=== PATIENT | female | born 1990 | race African-American/Black ===

== ENCOUNTER 2020-05-29 12:48 | Outpatient (CLI) | payer OTHER, SELFPAY ==
--- NOTE | ~2020-05-29 | MMUS_ITS ---
EXAMINATION: MM diagnostic jordana BI w roz, US breast LT complete HISTORY: Palpable left breast abnormality. TECHNIQUE: Additional 3-D tomosynthesis images of the breasts were performed and synthetic 2-D images were generated. CAD analysis was submitted and interpreted. High resolution left breast ultrasound w as performed. COMPARISON: None BREAST PARENCHYMAL COMPOSITION: The breasts are extremely dense, which lowers the sensitivity of mamm ography. FINDINGS: MAMMOGRAPHIC FINDINGS: There is a mass in the lower outer quadrant of the left breast posteriorly measuring up to 4 cm. Ther e is no mammographic evidence for malignancy in the right breast. ULTRASOUND: Right breast ultrasound: In the area palpable concern at 2:00, 1 cm from the nipple, there is a bilobed hypoechoic mass measur ing 7 mm maximum dimension without posterior features or internal vascularity. At 3:00, 5 cm from the nipple, there is cyst measuring 3.8 x 3 x 1.2 cm corresponding to the mass identified on mammogram. At 12:00 near the nipple there is a 1 cm cyst. IMPRESSION: 1. Probable benign bilobed mass at 2:00, 1 cm from the nipple measuring up to 7 mm. 2. Recommend 6 month follow-up left breast ultrasound BI-RADS category 3, probably benign findings. Reviewed, dictated and finalized at location A. IMPRESSION: 1. Probable benign bilobed mass at 2:00, 1 cm from the nipple measuring up to 7 mm. 2. Recommend 6 month follow-up left breast ultrasound BI-RADS category 3, probably benign findings.
== END 2020-05-29 12:49 | disposition home or self-care (01) ==
LOC: ANHIMG 12:51
PROVIDERS: PCP Internal Medicine; Visit Provider Obstetrics & Gynecology
DX: N63.20 Unspecified lump in the left breast, unspecified quadrant (principal); R92.8 Other abnormal and inconclusive findings on diagnostic imaging of breast
CPT/HCPCS: 76641; 77062; 77066; G0279

== ENCOUNTER 2020-10-08 10:39 | Outpatient (CLI) | payer OTHER, SELFPAY ==
--- NOTE | ~2020-10-08 | US_ITS ---
EXAMINATION: US OB <=14 wk fetus w TV DATE: 10/08/2020 11:17 INDICATION: First trimester with inconclusive viability TECHNIQUE: Real-time pelvic ultrasound utilizing both a transvaginal and transabdominal probe was pe rformed. The interpreting radiologist was not present for the study. COMPARISON: None. FINDINGS: The uterus measures 10.0 x 6.2 x 6.1 cm. There is an intrauterine gestational sac. A yolk sac and fe lois pole are identified. The crown rump length measures 2.3 cm, which correlates with an estimated ge stational age of 9 weeks and 0 days. heart motion is identified measuring 181 beats per minute (bpm) by M-mode Doppler. The right ovary measures 2.7 x 1.5 x 2.5 cm. The left ovary measures 3.3 x 2.0 x 2.3 cm. There are co uple approximately 1 cm anterior subserosal uterine fibroids. There is no free fluid in the pelvis. IMPRESSION: 1. Single living fetus with heart rate of 181 bpm. 2. Gestational age by ultrasound of 9 weeks 0 day(s) +/- 6 day(s) with ultrasound estimated date of delivery (ARVIND) of 05/13/2021. Reviewed, dictated and finalized at location A. 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 Single living fetus with heart rate of 181 bpm. 2. Gestational age by ultrasound of 9 weeks 0 day(s) +/- 6 day(s) with ultraso und estimated date of delivery (ARVIND) of 05/13/2021.
== END 2020-10-08 10:40 ==
PROVIDERS: Visit Provider Obstetrics & Gynecology
DX: O36.80X0 Pregnancy with inconclusive fetal viability, not applicable or unspecified (principal); Z3A.09 9 weeks gestation of pregnancy
CPT/HCPCS: 76801; 76817

== ENCOUNTER 2021-05-04 09:12 | Outpatient (CLI) | payer OTHER, SELFPAY ==
[2021-05-04 10:07] LABS: Hematocrit 37.6 % (37.0-47.0); Hemoglobin 11.7 g/dL (12.0-15.0); Mean Corpuscular HGB Conc 31.1 g/dl (32-36); Mean Corpuscular Hemoglobin 24.4 pg (26-34); Mean Corpuscular Volume 78.3 fl (80-100); Mean Platelet Volume 9.8 fl (7.4-10.4); Platelet Count Result 219 k/mm3 (150-375); White Blood Count 8.9 K/mm3 (4.5-10.0)
[2021-05-06 08:37] LABS: Rapid Plasma Reagin Non-Reactive (NonReactive)
== END 2021-05-04 09:13 | disposition home or self-care (01) ==
LOC: ANHASCLAB 09:17 → ANHLAB 09:17
PROVIDERS: PCP Internal Medicine; Visit Provider Obstetrics & Gynecology
DX: Z34.93 Encounter for supervision of normal pregnancy, unspecified, third trimester (principal); Z3A.00 Weeks of gestation of pregnancy not specified
CPT/HCPCS: 36415; 85027; 86592; 86850; 86900; 86901

== ENCOUNTER 2021-05-06 05:33 | Inpatient (IN) | payer OTHER, SELFPAY ==
--- NOTE | 2021-04-16 13:04 | PC.NURSE ---
VERIFIED WITH OR SCHEDULE AND PATIENT--C/S ON 05/06/21 AT 0730 PATIENT GIVEN REQUISITION FOR LAB DRAWN ON 05/04/21
[2021-05-06] VITALS (62 sets, daily range): BP systolic 98–133; BP diastolic 51–88; PULSE 71–113; RESP 12–18; TEMP 35.8–36.7; O2SAT 93–100; BMI 26.6
--- NOTE | 2021-05-06 05:38 | PM.IMHP ---
H&P: HPI History of Present Illness Date/Time: 05/06/21 05:38 EDC May 13 established by a 9 week ultrasound. Patient is a at 39 weeks admitted for repeat ceserean section. PNC signficant for prior ceserean section. Discussed risk and benefits of trial of labor versus repeat ceserean section and she desires repeat ceserean section. PNC also significant for prior PPROM and signficant for kidneys measuring larger and echogenic. No oligohydramnios. She has been followed by MFM and has had consult with carboy filler. They did not recommend delivery at tertiary care facility. They recommended ultrasound of baby at 48 hours. She has a history of HSV. She has been on suppression acyclovir. No outbreaks or prodromal symptoms in months. She has had normal surveillance testing. She is planning on getting IUD . labs reviewed. GSB negative. Chief Complaint: Elective repeat ceserean section. Review of Systems Review of Systems: All systems reviewed & are unremarkable except as noted in HPI and below Constitutional: Constitutional: Reports no additional constitutional complaints and Denies headache(s) Eyes: Eyes: Denies spots in vision ENT: Reports system reviewed and no additional complaints, except as documented and Denies headache(s) Cardiovascular: Cardiovascular: Denies chest pain and Denies dyspnea Respiratory: Respiratory: Denies dyspnea Gastrointestinal: Gastrointestinal: Reports no additional gastrointestinal complaints Genitourinary: Genitourinary: Reports amenorrhea Musculoskeletal: Musculoskeletal: Reports no additional musculoskeletal complaints Integumentary/Breasts: Skin/Breast: Denies breast mass and Denies rash Neurologic: Denies headache(s) Psychiatric: Psychiatric: Reports no additional psychiatric complaints [facility] Past Medical History Medical History Chlamydia Depression Impacted cerumen of left ear Right hip pain Screening for cardiovascular condition Urinary frequency Urinary tract infection without hematuria Surgical History Surgical History Previous section Family History Family History Grandparent Family history of elevated blood lipids Diabetes mellitus Hypertension Cerebrovascular accident Mother Patient's mother is in good health Father Patient's father is in good health Sibling Patient's brother is in good health Patient's sister is in good health Autism Son ADHD Social History Social History Smoking status: Former smoker Second hand tobacco smoke exposure: No Smoking end date: 11/14/16 Alcohol intake: current Substance use: never Spiritual care concerns: No Meds Home Medications and Allergies Home Medications Medication Instructions Recorded Confirmed Type prenat.vits,lobito,fow-wokn-zituf 1 tablet PO DAILY 09/18/20 03/27/21 History [id number]-[id number]-vit C-docusate sod tablet PO 11/09/20 03/27/21 History 90 mg-1 mg-12 mcg-120 mg-50mg tablet acyclovir 400 mg tablet See Rx Instructions .ROUTE 04/25/21 Rx .COMPLEX #60 tablet Allergies Allergy/AdvReac Type Severity Reaction Status Date / Time amoxicillin Allergy Unknown Abdominal Verified 05/02/21 16:27 discomfort clavulanic acid Allergy Unknown Hives Verified 05/02/21 16:27 potassium AdvReac Hives Verified 05/02/21 16:27 Exam Const: General: no acute distress Eyes: General: appearance normal, both eyes and all related structures Resp: Effort & Inspection: normal respiratory effort Cardio: Rate: regular rate GI: Other: Gravid no fundal tenderness no right upper quadrant pain : External Female Exam: normal external appearance Speculum Exam - Vagina: normal appearance of the vagina Speculum Exam -
[2021-05-06] MEDS: LACTATED RINGERS 1,000 ML 125 ML IV CONT ×2 (06:14→06:34)
--- NOTE | 2021-05-06 06:24 | LDADM ---
This patient, Karla Garcia, was admitted to Labor/Delivery/Recovery 120 on 05/06/21 at 05:33. Plans for labor, pain management and were discussed with patient. Patient/family oriented to hospital policies and general routines including ID bracelet, bed and alarms, visiting hours, pain management, procedures, bathroom and other care routines, personal items, smoking policy, room service/diet and guest tray routines, infant security routines, and visiting hours. Patient/Family are encouraged to report perceived risks to care and to ask questions if they do not understand what they are told or what they should do. See OBIX for further documentation.
--- NOTE | 2021-05-06 06:54 | WPDANESEPPF ---
Anes - Initial Pre Proc Eval Procedure: Operation Date: 05/06/21 07:30 Proposed Procedures p Repeat Section - Joey Macias MD Date/Time: 05/06/21 06:54 Surgeon: Joey Macias MD Pre Op Diagnosis: Patient Data Age: 31 Gender: F Height: 1.63 m Weight: 70.5 kg Last Vital Signs Temp 36.7 C 05/06/21 06:20 Pulse 96 05/06/21 05:47 BP 133/88 05/06/21 05:47 Allergies Allergy/AdvReac Type Severity Reaction Status Date / Time amoxicillin Allergy Unknown Abdominal Verified 05/02/21 16:27 discomfort clavulanic acid Allergy Unknown Hives Verified 05/02/21 16:27 potassium AdvReac Hives Verified 05/02/21 16:27 Home Medications Medication Instructions Recorded Confirmed Type prenat.vits,lobito,qvn-nvly-fskqr 1 tablet PO DAILY 09/18/20 05/06/21 History vbym-UB-wicZ32-vit C-docusate sod 1 tablet PO DAILY 11/09/20 05/06/21 History 90 mg-1 mg-12 mcg-120 mg-50mg tablet acyclovir 400 mg tablet See Rx Instructions .ROUTE 04/25/21 05/06/21 Rx .COMPLEX #60 tablet Patient hx anesthesia problems: none Family hx anesthesia problems: none PMFSH Past Medical History Medical History Chlamydia Depression Impacted cerumen of left ear Right hip pain Screening for cardiovascular condition Urinary frequency Urinary tract infection without hematuria Surgical History Surgical History Previous section Family History Family History Grandparent Family history of elevated blood lipids Diabetes mellitus Hypertension Cerebrovascular accident Mother Patient's mother is in good health Father Patient's father is in good health Sibling Patient's brother is in good health Patient's sister is in good health Autism Son ADHD Social History Social History Smoking status: Former smoker Tobacco type: cigarettes Second hand tobacco smoke exposure: No Smoking end date: 11/14/16 Alcohol intake: current Substance use: never Spiritual care concerns: No Anes - Eval Final PreProcedure Day of Procedure 05/06/21 06:54 Patient weight: normal Heart: regular rate and rhythm Lungs: clear to auscultation and normal air movement Airway: Mallampati scale class II Neurological: alert and oriented Last oral intake: >/= 8 hours ASA classification: II Emergent: no Anesthetic plan: proceed Anesthesia type and monitoring: regional spinal and standard monitoring Informed Consent: The patient's anesthetic plan and its attendant risks and benefits were discussed with the patient/family/POA. Questions were solicited and answers provided to the satisfaction of the patient/family/POA.
--- NOTE | 2021-05-06 07:38 | WPDHPUPDATE1 ---
History and Physical Update Update Date/Time: 05/06/21 07:38 History and Physical has been reviewed, including an updated exam of the patient. There are NO changes in the patient's condition. Risks, benefits, and alternatives have been discussed and questions answered. Patient agrees to proceed with procedure.
[2021-05-06] MEDS: ceFAZolin 2 GM/D5W 50 ML 2 GM/50 ML BAG IVPB (07:45)
[2021-05-06] MEDS: ONDANSETRON INJ 4 MG/2 ML VIAL IV PUSH (08:31)
[2021-05-06] MEDS: OXYTOCIN 30 UNITS/NS 500 ML 30 UNITS/500 ML BAG 125 UNITS IV CONT (09:40)
[2021-05-06] MEDS: fentaNYL CITRATE INJ (*CRX) 100 MCG/2 ML VIAL 25 MCG IV PUSH (10:00)
--- NOTE | 2021-05-06 11:55 | PC.NURSE ---
Patient transferred to post room #292 per stretcher from labor and delivery. Support person present. Oriented to unit, room, information board, rooming in, admission packet and security measures. Patient verbalizes understanding.
--- NOTE | 2021-05-06 13:35 | W.PM.PROC2 ---
Procedure Note - Detailed Date of Procedure 05/06/21 Pre-op Diagnosis Post-op Diagnosis same Procedure Performed Repeat low-transverse section. Surgeon Joey Macias MD Anesthesia spinal Indications Patient is a 31-year-old with a prior section. She has been counseled regarding options of trial of labor versus repeat section and has opted for repeat section at 39 weeks. Findings Male 6 lb 2 oz Apgars 9 and 9 normal fallopian tubes and ovaries bilaterally. There are multiple subserosal fibroids. One of the anterior fibroids appeared to be partially delivered up from the serosa and this was further cauterized and will be sent to pathology. Description of Procedure The patient was taken to the operating room where spinal anesthesia was found to be adequate. The patient was prepped and draped in the usual sterile fashion in the dorsal supine position with a left-shah tilt. A Pfannenstiel skin incision was made with the scalpel along her prior Pfannenstiel scar and carried through to the underlying layer of fascia using the Bovie. The fascia was incised in the midline and extended laterally using Figueroa scissors. Charlene clamps were used to elevate the superior aspect of the fascial incision, which was elevated, and the underlying rectus muscles were dissected off bluntly and using Figueroa scissors. Attention was then turned to the inferior aspect of the fascial incision, which in similar fashion was grasped with Charlene clamps, elevated, and the underlying rectus muscles were dissected off bluntly and using Figueroa scissors. The rectus muscles were dissected in the midline. The peritoneum was bluntly dissected, entered, and extended superiorly and inferiorly with good visualization of the bladder. The bladder blade was inserted. The vesicouterine peritoneum was identified with pickups and entered sharply using Metzenbaum scissors. This incision was extended laterally and the bladder flap was created digitally. The bladder blade was reinserted. The lower uterine segment was incised in a transverse fashion using the scalpel and extended using manual traction. Light meconium-stained fluid was noted. The was subsequently delivered atraumatically. The nose and mouth were bulb suctioned. The cord was clamped and cut. The was subsequently handed to the awaiting nursery nurse. Next, cord blood was obtained. Subsequent to the collection of this blood, the placenta was manually removed. The uterine cavity was sponge curetted.The uterus was exteriorized and cleared of all clots and debris. The uterine incision was repaired in 2 layers using 0 Vicryl suture. Hemostasis was visualized. The uterus was returned to the abdomen. The lower uterine segment was getting intermittently boggy she had been giving IV Pitocin. The bogginess did improve but was not optimal and therefore I instructed anesthesia to give her 0.2 mg of Methergine IM which did help sustain the tone to the the uterus. The posterior cul-de-sac was irrigated. The uterine incision was noted to be hemostatic. There were multiple small subserosal fibroids. There was an anterior fibroid that appeared to be partially protruding through the serosal layer this was removed with cautery. A ulyrgp-dn-dbjnl stitch of 0 Vicryl was used for hemostasis at the base of this and hemostasis was noted. The uterus was placed back into the abdomen. The pericolic gutters were irrigated. Interceed was placed horizontally along the uterine incision and vertically along the anterior uterus. The peritoneum was closed in a running fashion with 3 0 Vicryl. The fascia was closed with 0 Vicryl. The subcutaneous tissue was irrigated hemostasis obtained with cautery. The skin was closed in a subcuticular fashion with 4 O Vicryl on a Maxi needle. Sponge, lap, and instrument counts were correct x3. The patient was stable at the completion of the procedure and was pelaez
--- NOTE | 2021-05-06 13:45 | PC.NURSE ---
Mother called out for assist with feeding. Mother reports infant fed for aprox 5 minutes for first feeding then bottle fed. Infant is able to freely thrust tongue past gum ridge and flange both lips. Skin is intact on both nipples, no redness and bruising noted. Reviewed infant feeding cues, frequencies, duration of feedings, feeding elimination flow sheet, and signs of adequate intake. Demonstrated stimulation techniques to wake infant for feeding. Assisted with infant to breast. Reviewed positioning/alignment in football, holding breast in ?C? hold and guided asymmetrical latch on. Discussed rational for each. able to latch correctly. Reviewed signs of a correct latch, effective nursing and suck swallow ratio. Infant nursed eagerly, with steady draws and frequent swallowing noted. Reviewed the difference of effective vs ineffective nursing. Suggested mother stimulate while feeding to increase stimulation, increase intake and to assist with maintaining deep latch. was able to maintain latch without discomfort to mother. Nipple care reviewed of lanolin after feedings.
[2021-05-06] MEDS: DEXTROSE 5%/0.45% SOD CHL 1,000 ML 125 ML IV CONT ×2 (14:05→22:28)
--- NOTE | 2021-05-06 14:05 | PC.NURSE ---
Mother called out reporting fed for 3-5 minutes once LC left the room, infant fell asleep. LC observed 5 minutes of feeding before leaving. Offered to assist with waking to return to breast. Mother states FOB bottle fed and will put to breast next feeding.
[2021-05-07 00:15] VITALS: BP 108/74; PULSE 84; RESP 18; TEMP 36.9; O2SAT 97
[2021-05-07 04:20] VITALS: BP 113/76; PULSE 96; RESP 16; TEMP 36.9; O2SAT 100
[2021-05-07 05:57] LABS: Basophils Percent Auto 0.1 % (0.2-1.2); Eosinophils Percent Auto 0.2 % (0-4.4); Hematocrit 34.5 % (37.0-47.0); Hemoglobin 10.6 g/dL (12.0-15.0); Immature Granulocyte Absolute 0.11 K/mm3 (0.00-0.031); Immature Granulocyte Percent A 0.7 % (0-0.5); Lymphocytes Absolute Auto 1.07 K/mm3 (0.9-3.2); Lymphocytes Percent Auto 6.6 % (18.3-44.2); Mean Corpuscular HGB Conc 30.7 g/dl (32-36); Mean Corpuscular Hemoglobin 23.9 pg (26-34); Mean Corpuscular Volume 77.9 fl (80-100); Monocytes Absolute Auto 1.1 K/mm3 (0.1-0.6); Neutrophils Absolute Auto 13.9 K/mm3 (1.3-6.7); Neutrophils Percent Auto 85.4 % (45.5-73.1); Platelet Count Result 234 k/mm3 (150-375); Red Blood Count 4.43 M/mm3 (4.2-5.4); Red Cell Distribution Width 13.8 % (11.5-14.5); White Blood Count 16.2 K/mm3 (4.5-10.0)
[2021-05-07 08:55] VITALS: BP 114/78; PULSE 92; RESP 16; TEMP 37.4; O2SAT 99
--- NOTE | 2021-05-07 09:00 | PM.OBPNVD ---
OB - PN: Subj Subjective Date/time seen: 05/07/21 09:00 She reports adequate pain control. She did set up in a chair did well. Has not ambulated. Lochia decreasing. No leg pain. Tolerating clear liquids. No flatus. OB - PN: Obj Data Labs CBC & Chem 7: 05/07/21 04:21 Labs: Laboratory Results - last 24 hr 05/07/21 04:21 WBC 16.2 H RBC 4.43 Hgb 10.6 L Hct 34.5 L MCV 77.9 L MCH 23.9 L MCHC 30.7 L RDW 13.8 Plt Count 234 MPV 10.0 Immature Gran % (Auto) 0.7 H Neut % (Auto) 85.4 H Lymph % (Auto) 6.[address] [place] % (Auto) 7.0 Eos % (Auto) 0.2 Baso % (Auto) 0.1 L Lymph # (Auto) 1.07 [place] # (Auto) 1.1 H Eos # (Auto) 0.0 Baso # (Auto) 0.0 Abs Immat Gran (auto) 0.11 H Absolute Neuts (auto) 13.9 H Absolute Nucleated RBC 0.0 Nucleated RBC % 0.0 OB - PN A/P Assessment and Plan (1) Delivery by elective section: Code(s): O82 - Encounter for delivery without indication Status: Acute Assessment and Plan: postop day 1. Status post repeat section. Patient doing well. Continue routine care. Time Spent With Patient Time: Total time spent is greater than 50% in coordination of care (as documented) at patient's floor/unit and/or counseling patient: Exam Const: General: comfortable and no acute distress Resp: Effort & Inspection: normal respiratory effort GI: Other: Fundus -3 umbilicus firm nontender, dressing removed. incision intact no drainage no erythema no induration Neuro: General: oriented to person, oriented to place and oriented to time Extrem: General: normal to inspection Other: nontender Psych: Mental Status: mental status grossly normal Affect: normal affect
--- NOTE | 2021-05-07 09:23 | WPDANLDNPN2 ---
Anes-Prog Note L&D-Neuraxial Date/Time: 05/07/21 09:23 Neuraxial medications: intrathecal PF morphine Opiod-related complaints: none Patient feedback: Patient satisfied with post-operative pain management.
[2021-05-07] MEDS: IBUPROFEN 600 MG TABLET PO ×2 (09:24→17:49)
[2021-05-07] MEDS: DOCUSATE SODIUM 100 MG CAPSULE PO ×2 (09:24→16:08)
[2021-05-07] MEDS: MULTIVIT/MIN/PREN/FOL AC/IRON TABLET 1 TAB PO (09:24)
[2021-05-07] MEDS: HYDROcodone/acetaminophen (*CRX) 5-325 MG TABLET 1 TAB PO ×2 (09:24→17:49)
--- NOTE | 2021-05-07 09:24 | WPDANLDPN2 ---
Anes-Prog Note L&D Date/Time: 05/07/21 09:24 Comfortable throughout: section Neuraxial method: spinal Epidural/Spinal procedure site: clean & non-tender Neuro status: Neuro function grossly intact. Cardiovascular status: normal Respiratory status: normal Airway patency: baseline Mental status: baseline Post-Op hydration status: normal Vital Signs: Last Vital Signs Temp 36.9 C 05/07/21 04:20 Pulse 96 05/07/21 04:20 Resp 16 05/07/21 04:20 BP 113/76 05/07/21 04:20 Pulse Ox 100 05/07/21 04:20 Pain score (VAS): 0 I/O: Intake & Output 05/06/21 05/07/21 05/07/21 23:59 07:59 15:59 Intake Total 1940 440 Output Total 925 1250 Balance 1015 -810 Post-procedural complaints: none Patient feedback: Patient satisfied with anesthetic care.
[2021-05-07] MEDS: SIMETHICONE 80 MG TAB.CHEW PO ×3 (09:25→16:08)
--- NOTE | 2021-05-07 09:50 | PC.NURSE ---
Mother continues with breast and bottle feeding. Mother reports infant will eagerly wake for feedings and denies discomfort with nursing. Requested mother call out next feeding for observation.
[2021-05-07 20:00] VITALS: BP 117/72; PULSE 90; RESP 16; TEMP 37.1; O2SAT 99
[2021-05-08] MEDS: HYDROcodone/acetaminophen (*CRX) 5-325 MG TABLET 1 TAB PO ×2 (00:01→09:16)
[2021-05-08 08:05] VITALS: BP 113/75; PULSE 92; RESP 16; TEMP 36.8; O2SAT 99
--- NOTE | 2021-05-08 08:45 | PC.NURSE ---
Observed mother is able to independently latch with appropriate positioning/alignment. She denies any nipple discomfort, is feeding as required and waking infant to feed if needed. Mother chooses to breast and bottle feed. Mother will pump if she bottle feeds infant. Mother plans to discontinue formula once her milk is in. has had several effective feedings in the past 24 hours and is nippling bottle without issue, he is currently meeting outcomes for weight, output, jaundice and feeding frequencies. Mother states she feels confident to continue effective at home. Reviewed transition to breast milk, signs of adequate intake, and engorgement/relief. Instructed to call ICP if intake/output less than required. Reviewed regular medications mother is taking. Information provided per Adelita. Reviewed community resources on the [facility] website and in the Mom/Baby guide. Information on outpatient services provided. Mother has no further questions at this time.
[2021-05-08] MEDS: SIMETHICONE 80 MG TAB.CHEW PO (09:15)
[2021-05-08] MEDS: IBUPROFEN 600 MG TABLET PO ×2 (09:16)
[2021-05-08] MEDS: DOCUSATE SODIUM 100 MG CAPSULE PO (09:16)
[2021-05-08] MEDS: MULTIVIT/MIN/PREN/FOL AC/IRON TABLET 1 TAB PO (09:16)
--- NOTE | 2021-05-08 09:23 | PM.OBPNVD ---
OB - PN: Subj Subjective Date/time seen: 05/08/21 09:23 She states she is doing well. Positive flatus. Tolerating regular food. Has ambulated in halls. Has adequate pain control. No leg pain. Lochia is light. She desires to go home. She is well. OB - PN: Obj Data Labs CBC & Chem 7: 05/07/21 04:21 OB - PN A/P Assessment and Plan (1) Delivery by elective section: Code(s): O82 - Encounter for delivery without indication Status: Acute Assessment and Plan: She is doing well. Will discharge home today. Discharge precautions discussed. Time Spent With Patient Time: Total time spent is greater than 50% in coordination of care (as documented) at patient's floor/unit and/or counseling patient: Exam Const: General: comfortable and no acute distress Eyes: General: appearance normal, both eyes and all related structures Resp: Effort & Inspection: normal respiratory effort GI: Inspection: normal to inspection Other: incision healing well c/d/i Neuro: General: oriented to person, oriented to place, oriented to time and moves all extremities Extrem: General: normal to inspection Other: nontender Psych: Mental Status: mental status grossly normal Affect: normal affect
[2021-05-10 09:00] VITALS: BP 120/85; PULSE 82; RESP 20; TEMP 36.8; O2SAT 99
--- NOTE | 2021-05-31 11:05 | PM.OBDSVD ---
DS: Admitting Diagnosis Discharge Date 05/08/21 Admitting Diagnosis Elective repeat section. DS: Discharge Diagnosis Discharge Diagnosis (1) Delivery by elective section: Code(s): O82 - Encounter for delivery without indication Status: Acute OB - DS: Summary Hospital Course Hospital Course: Patient was admitted on May 06 for planned elective repeat section. She underwent an uncomplicated repeat section. Low-transverse section. Postoperatively she did well. On postop day 1 she had adequate pain control was ambulating and tolerating regular diet by the afternoon of post op day 1. On postop day 2 she was doing well had ambulated well was tolerating regular diet positive flatus. Had adequate pain control and was requesting discharge home. Discharge precautions discussed. OB Procedures : NST and Ultrasound OB Procedures Intrapartum: OB Procedures: : None Peripartum Data Infant Delivery Method: Section Laceration Description: None Procedures: Procedures Operation Date: 05/06/21 07:30 Actual Procedure Side Surgeon p Section Bilateral Joey Macias MD complications: none Status at Discharge Functional status at discharge: independent ambulation Time Spent with Patient Time attestation: Total time spent providing and/or coordinating discharge services: Exam Const: General: cooperative Orientation/consciousness: oriented to person, oriented to place and oriented to time HENMT: General nose exam: Normal external nose present Eyes: General: appearance normal, both eyes and all related structures Resp: Effort & Inspection: normal respiratory effort GI: Inspection: normal to inspection Other: Incision healing well Skin: General skin exam: normal color Neuro: General: oriented to person, oriented to place and oriented to time Extrem: General: normal to inspection and no calf tenderness Psych: Appearance: grossly normal Mental Status: mental status grossly normal DS: Data Data Completed and Pending Completed studies during hospitalization: Pending at discharge 05/06/21 08:15 Surgical [PTH] Routine Discharge Plan Discharge Attending physician on discharge: Joey Macias Consulting providers: Dave Juarez Discharging Clinician: Joey Macias Anticipated Discharge Date/Time: 05/08/21 09:27 Patient Disposition: Home, Self-Care Activity: may shower, may drive after 2 weeks, follow weight bearing status and pelvic rest Diet: regular Discharge Instructions: Pelvic rest for 4-6 weeks. May take over the counter Ibuprofen or Tylenol for pain. Prescription pain medication sent in. Call if saturating more than a pad an hour, leg redness, pain and swelling, temperature>100.4. No strenuous activity. Take daily Vitamin. Take iron supplement daily. Take Colace 100mg daily until regular bowel movements. Call for any drainage from incision. Education: Mom and Baby Guide Given to: Mother Follow-Up: Call your delivering provider's office for an appointment to be seen in: 2 Weeks Mom and baby should come to the [facility] for the follow-up appointment. Appointment Date/Time: May 10, 2021 at 9:00 am What to expect at your follow-up visit: Physical Assessment Call [phone] if you are unable to keep your appointment time. BREAST CARE: * Wear a snug supportive bra. * For engorgement discomfort: Breast Feeding: * Apply warm moist washcloths * Express milk as needed to relieve engorgement * Wear loose clothing * For sore nipples: * Identify correct latch-on * Apply warm moist washcloths before and after nursing * Air dry nipples after nursing * May apply Lansinoh cream to nipples ABDOMINAL INCISION: * Allow incision to air dry * Do NOT use lotions for powde
== END 2021-05-08 11:50 | disposition home or self-care (01) | DRG 787 ==
LOC: ANHLDR 05:37 → ANHOB2 12:01
PROVIDERS: Admitting Provider Obstetrics & Gynecology; PCP Internal Medicine; Visit Provider Obstetrics & Gynecology
PROC: 10D00Z1 Extraction of Products of Conception, Low, Open Approach (ICD-10-PCS; CPT 59514; principal; 2021-05-06 07:30)
DX: O34.211 Maternal care for low transverse scar from previous cesarean delivery (principal); O98.32 Other infections with a predominantly sexual mode of transmission complicating childbirth; Z37.0 Single live birth; Z3A.39 39 weeks gestation of pregnancy; A60.00 Herpesviral infection of urogenital system, unspecified; O77.0 Labor and delivery complicated by meconium in amniotic fluid; O34.13 Maternal care for benign tumor of corpus uteri, third trimester; D25.2 Subserosal leiomyoma of uterus
CPT/HCPCS: 36415; 85025; 85027; 86592; 86850; 86900; 86901; 88307; A9270; J0131; J0690; J1100; J2210; J2274; J2370; J2405; J2590; J3010; J7120

== ENCOUNTER 2022-10-16 07:10 | Outpatient (CLI) | payer OTHER, SELFPAY ==
[2022-10-16 08:20] LABS: Appearance Urine Clear (Clear); Bilirubin Urine Negative (Negative); Blood Urine Negative (Negative); Color Urine Yellow (Yellow); Glucose Urine UA Negative (Negative); Ketones Urine Negative (Negative); Leukocyte Esterase Ur Negative LEU/UL (Negative); Nitrate Urine Negative (Negative); Protein Urine 1+ mg/dL (Negative); Specific Grav Ur 1.025 (1.001-1.035); Urobilinogen Urine 0.2 mg/dL (<2.0); pH Urine 6.5 (5.0-9.0)
[2022-10-16 08:30] LABS: Bacteria Urine Trace /hpf; Mucus Urine Heavy /lpf; Squamous Epithelial Cell Urine Moderate /hpf (Few)
[2022-10-16 08:39] LABS: Add Urine Microscopic? YES
== END 2022-10-16 07:11 | disposition home or self-care (01) ==
PROVIDERS: PCP Internal Medicine; Visit Provider Nurse Practitioner
DX: R39.9 Unspecified symptoms and signs involving the genitourinary system (principal)
CPT/HCPCS: 81001; 87077; 87086; 87088

== ENCOUNTER 2023-05-22 07:40 | Outpatient (CLI) | payer OTHER, SELFPAY ==
[2023-05-22 08:17] LABS: Appearance Urine Cloudy (Clear); Bacteria Urine 4+ /hpf; Bilirubin Urine Negative (Negative); Blood Urine Negative (Negative); Color Urine Yellow (Yellow); Glucose Urine UA Negative (Negative); Ketones Urine Negative (Negative); Leukocyte Esterase Ur Negative LEU/UL (NEGATIVE); Nitrate Urine Positive (Negative); Non Pathogenic Casts 0-2; Protein Urine Negative (Negative); Squamous Epithelial Cell Urine Occasional /hpf (Few); WBC Urine 0-5 /hpf (0-3); pH Urine 5.5 (5.0-9.0)
[2023-05-22 08:20] LABS: Add Urine Microscopic? YES
== END 2023-05-22 07:41 | disposition home or self-care (01) ==
PROVIDERS: PCP Internal Medicine; Visit Provider Nurse Practitioner Family
DX: R10.9 Unspecified abdominal pain (principal); R30.0 Dysuria
CPT/HCPCS: 81001; 87077; 87086; 87186

== ENCOUNTER 2024-10-19 10:49 | Outpatient (CLI) | payer OTHER, SELFPAY ==
--- NOTE | ~2024-10-19 | MMUS_ITS ---
EXAMINATION: US breast LT limited, MM diagnostic jordana BI w roz HISTORY: Palpable left breast lump TECHNIQUE: Additional 3-D tomosynthesis images of the breasts were performed and synthetic 2-D images were generated. CAD analysis was submitted and interpreted. High resolution Limited left breast ultr asound was performed. COMPARISON: 05/29/2020 BREAST PARENCHYMAL COMPOSITION: Dense: The breasts are extremely dense, which lowers the sensitivity of mammography. FINDINGS: MAMMOGRAPHIC FINDINGS: There are no suspicious masses, calcifications or architectural distortion in either breast to sugges t malignancy. ULTRASOUND: Limited left ultrasound: At 3:00, 1 cm from the nipple in the area of palpable concern there is a clu ster of microcysts measuring 1.7 x 1.5 x 0.8 cm. No suspicious masses to suggest malignancy. IMPRESSION: 1. No evidence for malignancy in either breast. Benign findings. 2. Recommend follow-up mammogram at age 40 or unless otherwise clinically recommended. BI-RADS Category 2: Benign finding(s). Reviewed, dictated and finalized at location A. TING CARD MAKER IMPRESSION: 1. No evidence for malignancy in either breast. Benign findings. 2. Recommend follow-up mammogram at age 40 or unless otherwise clinically recom mended. BI-RADS Category 2: Benign finding(s).
--- OUTSIDE RECORDS SUMMARY | 2024-10-19 12:09 | XMS_ITS ---
Author Organization [facility] [employer] Address [facility] [address] [facility] [address] [place] [address] Care Team Providers Care Dx Board Operator Name Role Phone WINTER JOHNAlivia Primary Care Provider Unavailab Shayan Eric Unavailable [phone] Migration, Provider Unavailable Unavailable Allergies Allergen (clinical drug ingredient) Drug/Non Drug Allergy documented on EMR Reaction Allergy Type Onset Date Status amoxicillin Amoxicillin Unknown Drug Allergy 11/30/2023 Ac tive REASON FOR VISIT EMR-Brett Medications Medication SIG (Take, Route, Fr equency, Duration) Notes Start Date End Date Status Vilazodone HCl 20 MG Oral 11/30/2023 Active Viibryd 20 MG Oral 11/30/2023 Activ e Viibryd 40 MG Oral 11/30/2023 Activ e Acyclovir 400 MG Oral 11/30/2023 Ac tive Social History Sex Assigned At : Social History Observation Description Sex Assigned At Female Encounters Encounter Location Date Provider Diagnosis [facility] [employer] [place] [address] [facility] [address] [facility] [address] [place] [address] 02/07/2024 Provider Migration Plan Of Treatment Next Appt Details Provider Name:Shayan Bledsoe , 04/14/2025 03:30:00 PM, [address], [facility] [address], [place], [address], Progress Notes * ZARIA KRISHNAOB: 9 (34 yo F)Acc No.[id number]:02/07/2024 Patient:?TOMI ROD :1990???Age:33 Y???Sex:Female Address:[address] [place] [address], [address] Subjective: * Chief Complaints: * ???EMR-[facility]rett * Medical History:? * Crib Tender History:?Migrated GYNHis tory?Migrated GYNHistory:: Abnormal Pap: N Modified Date:11/03/2020,Age at First Child: 20 Modified Date:11/03/2020,Age at Menarche: 11 Modified Date:11/03/2020,Date of Last Mammogram: 05/29/2020 Modified Date:11/03/2020,Date of Last Pap Smear: 02/05/2023 Modified Date:03/09/2023,LMP: Unknown Modified Date:03/09/2023,Sexual Problems: Y Modified Date:11/30/2023,Sexually Active: Y Modified Date:11/03/2020, .? * Surgical History:?Other 03/21Cesarean section ([id number]) 03/30/2010ny surgical history 05/06/2021 * Hospitalization/Major Diagno stic Procedure:? * Family History:?Unspecified Relation: Anxiety disorder .?Maternal Aunt: Depressive disorder .?Maternal Grandmother: Diabetes mellitus .?Son: Attention deficit hyperactivity disorder .? * Social History:?Migrated Social History:?Migrated Social History: Alcohol Intake: Moderate 08/03/2021,Tobacco Years: Former smoker 12/12/2021. * Medications:?TakingViibryd 2 0 MG Tablet Oral Acyclovir 400 MG Tablet Oral Vilazodone HCl 20 MG Tablet Oral Viibryd 40 MG Tablet Oral Taking Viibryd 20 MG Tablet Oral Taking Acyclovir 400 MG Tablet Oral Taking Vilazodone HCl 20 MG Tablet Oral Taking Viibryd 40 MG Tablet Oral * Allergies:?Amoxicillin: Yang rgy - Onset Date 11/30/2023 Objective: * Vitals:? * Physical Examination:? Assessment: Plan: * Treatment: * Procedure Codes:? * true * Date:? 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
--- OUTSIDE RECORDS SUMMARY | 2024-10-19 12:09 | XMS_ITS | Patient Health Record ---
Author Organization [facility] [employer] Address [address] [place] [address] Care Team Providers Care Systems Support Engineer Name Role Phone RUTHIE JOHNAlivia Primary Care Provider Unavailab Shayan Eric Unavailable [phone] Migration, Provider Unavailable Unavailable Allergies Allergen (clinical drug ingredient) Drug/Non Drug Allergy documented on EMR Reaction Allergy Type Onset Date Status amoxicillin Amoxicillin Unknown Drug Allergy 11/30/2023 Ac tive Reason For Referral No Information Medications Medication SIG (Take, Route, Fr equency, Duration) Notes Start Date End Date Status Acyclovir 400 MG Oral 11/30/2023 Ac tive Viibryd 20 MG Oral 11/30/2023 Activ e Vilazodone HCl 20 MG 1 tablet once a day for 7 days, 1 tablet once a day for 30 days Orally Once a day for 30 days 08/02/2024 Ac tive Immunizations Vaccine Route Administration Date Status Comme nts Influenza virus vaccine, quadrivalent (IIV4), split virus, 0.25 mL dosage Unknown 08/18/2018 Administered Moderna Covid-19 Vaccine 1st dose Unknown 03/23/2021 Ad ministered Moderna Covid-19 Vaccine 1st dose Unknown 04/20/2021 Ad ministered Moderna Covid-19 Vaccine 1st dose Unknown 09/27/2021 Ad ministered Tdap Unknown 03/09/2021 Administered Social History Tobacco Use: Social History Observation Description Date Details (start date - stop date) Never Smoker NA - NA Sex Assigned At : Social History Observation Description Sex Assigned At Female Tobacco Control (Standard) Question Answer Notes Tobacco use: Nonsmoker Problems Problem Type SNOMED Code ICD Code Onset Dates Problem Status W/U Status Risk Notes Problem Generalized anxiety disorder (31670718) Generalized anxiety disorder (F41.1) Active confirmed Vital Signs Heart Rate 91 /min 08/01/2024 Height-cm 160.02 cm 08/01/2024 Blood pressure diastolic 75 mm Hg 08/01/2024 Weight-kg 61.69 kg 08/01/2024 Height 63.00 in 08/01/2024 Blood pressure systolic 114 mm Hg 08/01/2024 Weight 136 lbs 08/01/2024 BMI 24.09 kg/m2 08/01/2024 Encounters Encounter Location Date Provider Diagnosis [facility] [employer] [facility] [address] [address] 11/30/2023 Shayan Rakan Generalized anxiety disorder F41.1 [facility] [address] [address] 08/01/2024 Shayan Rakan Generalized anxiety disorder F41.1 [facility] [address] [address] 12/19/2023 Provider Migration [facility] [address] [address] 01/23/2024 Provider Migration [facility] [address] [address] 02/06/2024 Provider Migration [facility] [place] [address] [address] 02/07/2024 Provider Migration Assessments Encounter Date Diagnosis (ICD Code) Assessment Notes Treatment Notes Treatment Clinical Notes Section Notes 11/30/2023 Generalized anxiety disorder (ICD-10 - F41.1) 08/01/2024 Generalized anxiety disorder (ICD-10 - F41.1) Electronic Prior Authorization was requested for Vilazodone HCl 20 MG Tablet. Provider can order medication once approval received. Anxiety - Assessment: Patient reports good control of anxiety with current medication (Vilazodone 20 mg daily). No recent panic attacks reported. - Plan: - Continue Vilazodone 20 mg daily. - Monitor for any side effects. - Follow up in 8-9 months or sooner if needed. - Medication is filled through [facility] on [facility] for a 90-day supply. Family Stressors Related to Child with Autism - Assessment: Patient's 3-year-old child diagnosed with autism, causing some anxiety. Patient is actively seeking additional support and resources for the child. Child is attending school daily and showing improvement in interaction, but still not talking. Patient is pursuing [facility] therapy and has submitted paperwork for a program starting in late August or early September. - Plan: - Encourage patient to continue seeking appropriate services and support for the child. - Offer resources and referrals if needed. - Monitor patient's mental health and coping strategies during follow-up visits. General Health and Well-being - Assessment: Patient reports no new medical issues in the past 8-9 months. Patient has good family support, including help from , parents, grandmother, and 14-year-old son. - Plan: - Encourage patient to maintain a healthy lifestyle and routine medical care. - Follow up in 8-9 months or sooner if any new concerns arise. Plan Of Treatment Next Appt Details Provider Name:Shayan Bledsoe , 04/14/2025 03:30:00 PM, [address] [place] [address] [address], [facility] [address], [address], Insurance Providers Payer Name Payer Address Payer Phone Subscriber Number Group Number Insured Name Patient Relationship to Insured Coverage Start Date Coverage End Date Enrique [address] [place] [id number] [employer] Other Medical (General) History Medical History History ICD Code Problems: Generalized anxiety disorder Severe recurrent major depression withou t psychotic features , Surgical History Surgery Date(Month/Year) section ([id number]) 03/30/2010 Other 03/30/2010 Any surgical history 05/06/2021
--- OUTSIDE RECORDS SUMMARY | 2024-10-19 12:10 | XMS_ITS ---
Author Organization [facility] [employer] [facility] Address [address] [facility] [address] [place] [address] Care Team Providers Care Evp General Counsel Name Role Phone WINTER JOHN Alivia Primary Care Provider Unavailab Shayan Eric Unavailable [phone] Migration, Provider Unavailable Unavailable REASON FOR VISIT EMR-[facility] Social History Sex Assigned At : Social History Observation Description Sex Assigned At Female Encounters Encounter Location Date Provider Diagnosis [facility] [employer] [facility] [address] [facility] [address] [place] [address] 02/06/2024 Provider Migration Plan Of Treatment Next Appt Details Provider Name:Shayan Bledsoe , 04/14/2025 03:30:00 PM, [address], [facility] [address], [address], Progress Notes * PARRISH KRISHNAPHILIPPEOB: 9 (34 yo F)Acc No.[id number]:02/06/2024 Patient:?ROD KRISHNA :1990???Age:33 Y???Sex:Female Address:[address] [place] [address], [address] Subjective: * Chief Complaints: * ???EMR-[facility] * Medical History:? * Surgical History:? * Hospitalization/Major Diagno stic Procedure:? * Medications:? Objective: * Vitals:? * Physical Examination:? Assessment: Plan: * Treatment: * Procedure Codes:? * true * Date:? Generated for Alka perez/Trung/Gino on:?10/19/2024 12:09 PM [employer] TO[employer] MAKER
--- OUTSIDE RECORDS SUMMARY | 2024-10-19 12:10 | XMS_ITS ---
Author Organization [facility] As [facility] Address [address] [facility] [address] [place] [address] Care Team Providers Care Compounding And Finishing Supervisor Name Role Phone WINTER JOHN Alivia Primary Care Provider Unavailab Danyelle Eric Unavailable [phone] Allergies Allergen (clinical drug ingredient) Drug/Non Drug Allergy documented on EMR Reaction Allergy Type Onset Date Status amoxicillin Amoxicillin Unknown Drug Allergy 11/30/2023 Ac tive REASON FOR VISIT 1 Follow up, MIPS PHQ less than 5 Positive with f/u doc, Depression screening positive Medications Medication SIG (Take, Route, Fr equency, Duration) Notes Start Date End Date Status Acyclovir 400 MG Oral 11/30/2023 Ac tive Vilazodone HCl 20 MG 1 tablet with food Orally Once a day for 90 days 08/01/2024 Active Viibryd 20 MG Oral 11/30/2023 Activ e Social History Tobacco Use: Social History Observation Description Date Details (start date - stop date) Never Smoker NA - NA Sex Assigned At : Social History Observation Description Sex Assigned At Female Tobacco Control (Standard) Question Answer Notes Tobacco use: Nonsmoker Problems Problem Type SNOMED Code ICD Code Onset Dates Problem Status W/U Status Risk Notes Problem Generalized anxiety disorder (52066285) Generalized anxiety disorder (F41.1) Active confirmed Vital Signs Blood pressure systolic 114 mm Hg 08/01/20 24 Blood pressure diastolic 75 mm Hg 024 Heart Rate 91 /min 08/01/2024 Weight 136 lbs 08/01/2024 Weight-kg 61.69 kg 08/01/2024 Height 63.00 in 08/01/2024 Height-cm 160.02 cm 08/01/2024 BMI 24.09 kg/m2 08/01/2024 Encounters Encounter [facility] Date [facility] [address] [facility] [address] [place] [address] 08/01/2024 Danyelle Urbina Generalized anxiety disorder F41.1 Assessments Encounter Date Diagnosis (ICD Code) Assessment Notes Treatment Notes Treatment Clinical Notes Section Notes 08/01/2024 Generalized anxiety disorder (ICD-10 - F41.1) [...] if needed. - Medication is filled through [facility] on [facility] for a 90-day supply. Family Stressors [...] any new concerns arise. Plan Of Treatment Medication Medication Name Sig Start Date Stop Date Notes Vilazodone HCl 20 MG 1 tablet with food Orally Once a day for 90 days 08/01/2024 Treatment Notes Assessment Notes Generalized anxiety disorder Electronic Prior Authorization was requested for Vilazodone HCl 20 MG Tablet. Provider can order medication once approval received. Next Appt Details Provider Name:Danyelle Urbina , 04/14/2025 03:30:00 PM, [address], [facility] [address], [place], [address], Progress Notes * ZARIA CONROYOB:[birth year] (34 yo F)Acc No.[id number]:08/01/2024 Patient:?ROD CONROY Provider:?DANYELLE URBINA MD :1990???Age:34 Y???Sex:Female D ate:08/01/2024 Address:[address] [place], [place] [id number] Pcp:Alivia HENDRICKS SWITCH CLEANER Subjective: * Chief Complaints: * ???1 Follow upMIPS PHQ less than 5 Positive with f/u docDepression screening positive * HPI: ???Depression Screening:? Chief Complaint: Overall well-being and child's developmental concerns The note is transcribed using speech recognition software. It is a reflection of a visit with the patient. It might have some inaccuracy, including medication names and transcribing errors, though efforts have been made to correct them. Employment: The patient continues to work for [employer] and reports that work has been getting busier due to people scheduling appointments before their new plans take effect. Family Situation: The patient is experiencing some anxiety related to her 3-year-old child, who has autism and is not yet talking. She has an older son who is 14 years old. Child's Development: The patient's 3-year-old child with autism is interacting with people and listening but is still not talking. The child attends school daily. Therapy and Support: The patient is actively seeking behavioral therapy for her child and has submitted paperwork to a facility expected to open in the coming months. She is also trying to get her child into [facility]. Support System: The patient has a support system including her , parents, grandmother, and older son. Medical History: Over the past 8 to 9 months, the patient has not experienced any medical issues. Medications: The patient is taking vilazodone 20 mg once daily for anxiety control, with no reported side effects. Pharmacy: The patient receives her medication through [employer] [facility], specifically [facility] on [facility] in [place], with a 90-day supply. The note is transcribed using speech recognition software. It is a reflection of a visit with the patient. It might have some inaccuracy, including medication names and transcribing errors, though efforts have been made to correct them. ?JARVIS-7 (2018 Edition)?Feeling nervous, anxious, or on edge?Several days,?Not being able to stop or control worrying?Not at all,?Worrying too much about different things?Several days,?Trouble relaxing?Not at all,?Being so restless that it is hard to sit still?Not at all,?Becoming easily annoyed or irritable?Several days,?Feeling afraid as if something awful might happen?Not at all,?If you checked any problems, how difficult have they made it for you to do your work, take care of things at home, or get along with other people??Somewhat difficult.?[place]-Suicide Severity Rating Scale:?Suicide Risk (CSRS-screener)?in the past one month Have you wished you were or wished you could go to sleep and not wake up??No,?in the past one month Have you actually had any thoughts of killing yourself??No.?Depression screening:?PHQ-9?Little interest or pleasure in doing things?Several days,?Feeling down, depressed, or hopeless?Not at all,?Trouble falling or staying asleep, or sleeping too much?Several days,?Feeling tired or having little energy?Several days,?Poor appetite or overeating?Not at all,?Feeling bad about yourself or that you are a failure, or have let yourself or your family down?Several days,?Trouble concentrating on things, such as reading the newspaper or watching television?Not at all,?Moving or speaking so slowly that other people could have noticed; or the opposite, being so fidgety or restless that you have been moving around a lot more than usual?Not at all,?Thoughts that you would be better off or of hurting yourself in some way?Not at all,?Total Score?4,?Interpretation?Minimal Depression.?Intervention?Depression Screening Findings?Positve,?Follow-Up for Depression?Mental health treatment assessment, Patient follow-up to return when and if necessary,?Suicide Risk Assessment Performed? ,?Additional Evaluation for Depression?Psychiatric interview and evaluation,?Name of the standardized tool used for adult depression screening:?Patient Health Questionnaire (PHQ-9).? * Medical History:? * Surgical History:? * Hospitalization/Major Diagno stic Procedure:? * Social History:?Tobacco Use:?Tobacco Control (Standard)?Tobacco use:?Nonsmoker.?Migrated Social History:?Migrated Social History: Alcohol Intake: Moderate 08/03/2021,Tobacco Years: Former smoker 12/12/2021. ???Miscellaneous:?Advance Care Planning?Are you your own decision-maker?Yes,?Do you have Power of [employer] for Health or Medical??No.? * Medications:?TakingViibryd 2 0 MG Tablet Oral Acyclovir 400 MG Tablet Oral Taking Viibryd 20 MG Tablet Oral Taking Acyclovir 400 MG Tablet Oral DiscontinuedVilazodone HCl 20 MG Tablet Oral Viibryd 40 MG Tablet Oral Medication List reviewed and reconciled with the patientDiscontinued Vilazodone HCl 20 MG Tablet Oral Discontinued Viibryd 40 MG Tablet Oral Medication List reviewed and reconciled with the patient * Allergies:?Amoxicillin: Yang rgy - Onset Date 11/30/2023no[Allergies Verified] Objective: * Vitals:?BP:114/75mm Hg, HR:9 1/min, Wt:136lbs, Wt-k.69 kg, Ht: 63.00 in, Ht- cm: 160.02 cm, BMI:24.09Index, Body Surface Area: 1.65. * Examination: ???General Examination: ???Mental Status Examination: Patient appeared calm and engaged in conversation. No signs of acute distress were noted. Patient denied experiencing panic attacks but reported feeling a little anxious about her child's developmental delays. Patient's speech was coherent and goal-directed. Patient reported good coping and having support from family members. Vital Signs: N/A. Assessment: * Assessment: 1.?Generalized anxiety disor humble - F41.1??? Anxiety - Assessment: Patient reports good control of anxiety with current medication (Vilazodone 20 mg daily). No recent panic attacks reported. - Plan: - Continue Vilazodone 20 mg daily. - Monitor for any side effects. - Follow up in 8-9 months or sooner if needed. - Medication is filled through [facility] on [facility] for a 90-day supply. Family Stressors [...] or sooner if any new concerns arise. Plan: * Treatment: * Procedure Codes:?98525 BEHAV ASSMT W/SCORE & DOCD/STAND [id number] VISIT COMPLEXITY INHERENT TO ONGOING CARE RELATED TO A PATIENT'S SINGLE, SERIOUS CONDITION OR A COMPLEX CONDITION * Billing Information: * Visit Code:? 15018 OFFICE OUTPATIENT VISIT 25 MINUTES DETAILED HISTORY AND EXAM/MODERATE MEDICAL DECISION MAKING. * Procedure Codes:? 95002 BEHAV ASSMT W/SCORE & DOCD/STAND INSTRUMENT. G2211 VISIT COMPLEXITY INHERENT TO ONGOING CARE RELATED TO A PATIENT'S SINGLE, SERIOUS CONDITION OR A COMPLEX CONDITION. * EQUIPMENT OPERATOR Sign off status: Completed true * Provider:?DANYELLE URBINA MD Date:?08/01 Generated for Alka perez/Trung/Gino on:?10/19/2024 12:09 PM RAIL EQUIPMENT OPERATOR History and Physical Notes * HPI (History of Present Illness) Category Sub-Category Detail Notes Category Not es Depression screening PHQ-9 Little inte rest or pleasure in doing things: Several days Feeling down, depressed, or hopeless: No t at all Trouble falling or staying asleep, or sl eeping too much: Several days Feeling tired or having little energy: S everal days Poor appetite or overeating: Not at all Feeling bad about yourself o r that you are a failure, or have let yourself or your family down: Several days Trouble concentrating on thi ngs, such as reading the newspaper or watching television: Not at all Moving or speaking so slowly that other people could have noticed; or the opposite, being so fidgety or restless that you have been moving around a lot more than usual: Not at all Thoughts that you would be b [place] off or of hurting yourself in some way: Not at all Total Score: 4 Interpretation: Minimal Depression Intervention Depression Screening Findings: P ositve Follow-Up for Depression: [facility] treatment assessment, Patient follow-up to return when and if necessary Suicide Risk Assessment Performed: Additional Evaluation for De pression: Psychiatric interview and evaluation Name of the standardized too l used for adult depression screening:: Patient Health Questionnaire (PHQ-9) Depression Screening JARVIS-7 (2018 Edition) Feelin g nervous, anxious, or on edge: Several days Not being able to stop or control worryi ng: Not at all Worrying too much about different things : Several days Trouble relaxing: Not at all Being so restless that it is hard to sit still: Not at all Becoming easily annoyed or irritable: Se veral days Feeling afraid as if something awful toño ht happen: Not at all If you checked any problems, how difficult have they made it for you to do your work, take care of things at home, or get along with other people?: Somewhat difficult [place]-Suicide Severity Rating Scale Suicide Risk (CSRS-screener) in the past one month Have you wished you were or wished you could go to sleep and not wake up?: No in the past one month Have y ou actually had any thoughts of killing yourself?: No Examination Category Sub-Category Detail Notes Category Not es General Examination Mental Status Examination: Patient appeared calm and engaged in conversation. No signs of acute distress were noted. Patient denied experiencing panic attacks but reported feeling a little anxious about her child's developmental delays. Patient's speech was coherent and goal-directed. Patient reported good coping and having support from family members. Vital Signs: N/A
== END 2024-10-19 10:50 | disposition home or self-care (01) ==
PROVIDERS: PCP Nurse Practitioner Family; Visit Provider Nurse Practitioner Obstetrics & Gynecology
DX: N63.23 Unspecified lump in the left breast, lower outer quadrant (principal)
CPT/HCPCS: 76642; 77062; 77066; G0279